=== PATIENT | male | born 1990 | race Caucasian/White ===

== ENCOUNTER → 2018-05-19 | Outpatient (CLI) | payer OTHER ==
[~2018-05-19] MED LIST: PROHANCE 279.3MG/ML 15ML VIAL (A9576) As Ordered ONE
--- NOTE | 2018-05-19 14:56 | REP ---
MRI internal auditory canals and with IV contrast: History: IAC MRI study done elsewhere without contrast reveal tortuosity of the superior vestibular nerve in the left internal auditory canal. Contrast enhanced study recommended. Gadolinium enhancement dose: 15 ml of intravenous ProHance. MR technique: Axial and coronal thin section postcontrast imaging through the petrous bones and IACs performed. Precontrast T1-weighted axial thin sections are acquired. Postcontrast whole brain T1-weighted axial sequence is acquired. MRI findings: There is a curvilinear vascular structure looped within the internal auditory canal on the left. This may be to be a vascular loop of the anterior inferior cerebellar artery. It extends more than 50% of the length of the internal auditory canal. This may be a cause of pulsatile tinnitus or conceivably a sensory neural hearing loss. No other abnormal enhancement is seen. No enhancement is observed in the internal auditory canal on the right side. No CP angle cistern mass is seen. T1-weighted post gadolinium enhanced images show no other abnormal gadolinium enhancement intracranially. 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 These vascular loops have been implicated as a potential cause of auditory and vestibular symptoms. No mass lesion is visible. Electronically Signed by Ry Lieberman MD 05/19/2018 06:18 P
== END ==
LOC: M RAD 12:51
DX: H91.92 Unspecified hearing loss, left ear (principal); H93.8X2 Other specified disorders of left ear
CPT/HCPCS: 70552; A9576